=== PATIENT | male | born 1995 | race Two or more races ===

== ENCOUNTER 2022-04-17 10:02 | Outpatient (CLI) | payer OTHER | END 2022-04-17 23:59 | disposition home or self-care (01) | LOC: LAB 10:02 | PROVIDERS: ATTEND Specialist | DX: Z01.812 Encounter for preprocedural laboratory examination (principal); Z20.822 Contact with and (suspected) exposure to COVID-19 | CPT/HCPCS: U0003; C9803 ==

== ENCOUNTER 2022-04-24 05:27 | Day surgery (SDC) | payer OTHER ==
[2022-04-24] MEDS ORDERED: EPINEPHRINE (1:1000) 1 MG/ML AMPUL ONE (06:22)
[2022-04-24] MEDS ORDERED: BUPIVACAINE 0.5 % PF 150 MG/30 ML VIAL ONE (06:22)
[2022-04-24] MEDS ORDERED: methylPREDNISolone ACETATE 80 MG/ML VIAL ONE (06:22)
[2022-04-24] MEDS ORDERED: FENTANYL PF 100MCG/2ML AMPUL ONE (07:52)
[2022-04-24] MEDS ORDERED: MEPERIDINE25 MG SYR 25 MG/ML VIAL ONE (09:35)
== END 2022-04-24 11:40 | disposition home or self-care (01) ==
LOC: DS 05:27
PROVIDERS: ATTEND Specialist
DX: S83.512A Sprain of anterior cruciate ligament of left knee, initial encounter (principal); X58.XXXA Exposure to other specified factors, initial encounter; Y93.89 Activity, other specified; Y92.89 Other specified places as the place of occurrence of the external cause; Y99.8 Other external cause status
CPT/HCPCS: 29888; L1830; J0690; J3490 ×2; J1100; J2704; J0171; J3010; J1885; J2405; C1713; J7030; A4217; J2175; J1040